=== PATIENT | male | born 1945 | race Caucasian/White ===

== ENCOUNTER 2020-09-09 17:19 | Emergency (ER) | payer OTHER ==
[~2020-09-09] VITALS: Ht 167.6 cm; Wt 136.1 kg
[2020-09-09 17:30] VITALS: BP 127/80
[2020-09-09 17:57] LABS: ABSOLUTE LYMPHOCYTES 0.9 thou/uL (0.8-5.3); ABSOLUTE MONOCYTES 0.4 thou/uL (0.0-1.2); BASOPHILS 0.4 %; EOSINOPHILS 0.1 %; HEMATOCRIT 33.8 % (42.0-52.0); LYMPHOCYTES 16.4 %; MCHC 32.6 g/dL (28.0-37.0); MCV 91.9 fL (80.0-100.0); MONOCYTES 8.1 %; MPV 8.7 fl. (7.2-11.1); NUCLEATED RBCS 0 /100WBC; PLATELET COUNT* 147 thou/uL (150-400); RBC 3.67 mil/uL (4.50-6.00); RDW-CV 14.5 % (10.5-14.5); WBC 5.3 thou/uL (4.0-11.0)
[2020-09-09 18:07] LABS: CALCIUM 8.3 mg/dL (8.5-10.1); CREATININE 3.3 mg/dL (0.6-1.3); POTASSIUM 4.5 mmol/L (3.5-5.1)
[2020-09-09 18:07] LABS: BE 0.2 mmol/L (-2 to +3); PO2 81.2 mmHg (75.0-100.0)
[2020-09-09 18:10] LABS: PROTIME 10.5 Seconds (9.20-11.50)
[2020-09-09 18:13] LABS: PCO2 70.6 mmHg (35.0-45.0); pH 7.234 (7.340-7.450)
[2020-09-09 18:18] LABS: ALBUMIN 3.3 g/dL (3.4-5.0); TOTAL BILIRUBIN 0.5 mg/dL (<0.1-1.0); TOTAL PROTEIN 7.5 g/dL (6.4-8.2)
--- NOTE | 2020-09-09 19:32 | NUR ---
PT HEARTRATE @ 42 AND IN PROCESS OF DOING PATIENT CARE DR HINSON FOUND PT WITH BIPAP MASK OFF NO BREATHING/CYANOTIC--CODE BLUE CALLED ET CPR STARTED ET ACLS PROTOCOL INITIATED--CODE CALLED @ 1946
[2020-09-09 19:47] VITALS: BP 0/0
[2020-09-09 19:48] VITALS: BP 0/0
== END 2020-09-09 19:47 ==
LOC: M.ERS 17:19 → M.TBA-ER 18:18 → M.ERS 18:18
PROVIDERS: Family Medicine
DX: U07.1 COVID-19 (principal); J96.90 Respiratory failure, unspecified, unspecified whether with hypoxia or hypercapnia; I21.4 Non-ST elevation (NSTEMI) myocardial infarction; N17.9 Acute kidney failure, unspecified; R41.82 Altered mental status, unspecified; R77.8 Other specified abnormalities of plasma proteins; I10 Essential (primary) hypertension; Z88.8 Allergy status to other drugs, medicaments and biological substances